=== PATIENT | female | born 1970 | race Caucasian/White ===

== ENCOUNTER 2021-09-17 13:24 | Outpatient (REF) | payer OTHER, SELFPAY ==
[2021-09-18 03:57] LABS: CT PCR NOT DETECTED (Not Detect.); NG PCR NOT DETECTED (Not Detect.)
[2021-09-22 04:46] LABS: HPV mRNA E6/E7 rflx Not Detected (Not Detected)
== END 2021-09-17 13:25 | disposition home or self-care (01) ==
LOC: HO.LAB 13:24
PROVIDERS: PCP Internal Medicine; Visit Provider Advanced Practice Midwife
DX: Z01.419 Encounter for gynecological examination (general) (routine) without abnormal findings (principal); Z11.51 Encounter for screening for human papillomavirus (HPV); Z20.2 Contact with and (suspected) exposure to infections with a predominantly sexual mode of transmission; E28.319 Asymptomatic premature menopause
CPT/HCPCS: 87491; 87591; 87624; 88142

== ENCOUNTER 2021-09-17 14:26 | Outpatient (REF) | payer OTHER, SELFPAY ==
[2021-09-17 15:25] LABS: Syphilis Screen Nonreactive (Nonreactive)
[2021-09-20 08:25] LABS: ~HepC Num1 0.09 S/CO (0.00-0.79); ~Hepatitis C Antibody Nonreactive (Nonreactive)
[2021-09-20 08:50] LABS: HBc Num1 0.05 S/CO (0.00-0.79); HIV AB/AG Nonreactive (Nonreactive); Hepatitis B Core Antibody Nonreactive (Nonreactive)
== END 2021-09-17 14:27 | disposition home or self-care (01) ==
LOC: HO.LAB 14:26
PROVIDERS: PCP Internal Medicine; Visit Provider Advanced Practice Midwife
DX: Z01.84 Encounter for antibody response examination (principal); Z11.4 Encounter for screening for human immunodeficiency virus [HIV]; Z20.2 Contact with and (suspected) exposure to infections with a predominantly sexual mode of transmission
CPT/HCPCS: 36415; 86704; 86780; 86803; 87389

== ENCOUNTER 2022-05-14 09:27 | Outpatient (REF) | payer OTHER, SELFPAY ==
[2022-05-14 09:47] LABS: MANUAL DIFF FLAG NO
[2022-05-14 10:05] LABS: Basophils Absolute Auto 0.1 X10*3/uL (0.0-0.2); Basophils Percent Auto 1.4 % (0-2); Eosinophils Absolute Auto 0.2 X10*3/uL (0.0-0.4); Eosinophils Percent Auto 3.8 % (0-4); Hematocrit 40.9 % (37.0-47.0); Hemoglobin 13.5 g/dl (12.0-16.0); Imm Gran Abs Auto 0.01 X10*3/uL (0.00-0.03); Imm Gran Pct Auto 0.2 % (0.0-0.4); Lymphocytes Absolute Auto 1.6 X10*3/uL (1.2-4.9); Lymphocytes Percent Auto 38.3 % (20-40); Mean Corpuscular Hemoglobin 29.5 pg (27.0-33.0); Mean Corpuscular Volume 89.5 fL (80.0-98.0); Mean Platelet Volume 9.9 fL (9.4-12.3); Monocytes Absolute Auto 0.4 X10*3/uL (0.1-1.2); Monocytes Percent Auto 8.9 % (2-11); Neutrophils Percent Auto 47.4 % (45-73); Platelet Count 168 X10*3/uL (160-400); Red Blood Count 4.57 X10*6/uL (4.20-5.50); Red Cell Distribution Width 12.7 % (11.0-16.0); White Blood Count 4.2 X10*3/uL (4.8-10.8)
[2022-05-14 10:45] LABS: Alanine Aminotransferase 20 U/L (0-31); Albumin Level 4.7 g/dL (3.5-5.0); Alkaline Phosphatase 82 U/L (39-117); Anion Gap 16 (12-20); Aspartate Amino Transferase 22 U/L (5-31); Bilirubin Total 0.4 mg/dL (0.0-1.0); Blood Urea Nitrogen 20 mg/dL (9-16); Calcium 9.5 mg/dL (8.4-10.2); Carbon Dioxide 25 mmol/L (22-29); Chloride 105 mmol/L (96-108); Cholesterol 119 mg/dL; Estimated Glomerular Filt Rate > 60; Glucose Random 89 mg/dL (60-115); HDL Cholesterol 40 mg/dL; LDL Cholesterol Calculated 70 mg/dl; Potassium 4.8 mmol/L (3.3-5.1); Sodium 141 mmol/L (135-145); Total Protein 7.1 g/dL (6.5-8.0); Triglycerides 47 mg/dL
[2022-05-14 10:52] LABS: Free T4 (Free Thyroxine) 1.07 ng/dL (0.71-1.85); Vitamin D 25-OH Total 69.5 ng/mL (>30)
[2022-05-14 11:50] LABS: Folate 17.3 ng/mL (> or = 4.0); Vitamin B12 886 pg/mL (200-900)
[2022-05-17 05:07] LABS: Follicle Stimulating Hormone 88.1 mIU/mL; Lutenizing Hormone 36.2 mIU/mL; Prolactin 5.2 ng/mL
[2022-05-20 16:52] LABS: Estrogen 84.6 pg/mL
== END 2022-05-14 09:28 | disposition home or self-care (01) ==
LOC: HO.LAB 09:27
PROVIDERS: PCP Internal Medicine; Visit Provider Internal Medicine
DX: K58.9 Irritable bowel syndrome, unspecified (principal); N91.2 Amenorrhea, unspecified; E78.00 Pure hypercholesterolemia, unspecified
CPT/HCPCS: 36415; 80053; 80061; 82306; 82607; 82672; 82746; 83001; 83002; 84146; 84439; 84443; 85025

== ENCOUNTER 2022-05-20 15:59 | Outpatient (REF) | payer OTHER, SELFPAY ==
--- NOTE | ~2022-05-20 | MM_ITS ---
EXAMINATION: MM SCREENING DIGITAL BREAST TOMOSYNTHESIS, BILATERAL CLINICAL INFORMATION: Screening. Asymptomatic. No prior breast imaging. No known family history breast cancer. The lifetime risk of breast cancer based on the Tyrer-Cuzick Model is 4%. COMPARISON: None (current study represents initial baseline exam). TECHNIQUE: Digital breast tomosynthesis is performed in both the craniocaudal and mediolateral oblique views along with computer-aided detection (CAD). Synthesized 2D images are generated from the tomosynthesis. FINDINGS: There are scattered areas of fibroglandular density (ACR BI-RADS breast composition Category b). There are no significant masses, abnormal calcifications, or other abnormalities. Breast tissue composition borders on heterogeneously dense in the anterior breasts. No architectural abnormality. The axilla and skin contours are unremarkable. MM/MM tomosynthesis screening BI IMPRESSION: No mammographic evidence of malignancy. ASSESSMENT: BI-RADS 1: Negative RECOMMENDATION: Routine annual mammography screening. This patient's information was entered into a reminder system with a target due date for their next mammogram.
== END 2022-05-20 16:00 | disposition home or self-care (01) ==
LOC: HO.MAMMO 15:59
PROVIDERS: Visit Provider Internal Medicine
DX: Z12.31 Encounter for screening mammogram for malignant neoplasm of breast (principal)
CPT/HCPCS: 77063; 77067

== ENCOUNTER 2023-02-17 17:08 | Outpatient (REF) | payer OTHER, SELFPAY | END 2023-02-17 17:09 | disposition home or self-care (01) | LOC: HO.LAB 17:08 | PROVIDERS: PCP Internal Medicine; Visit Provider Nurse Practitioner Family | DX: R22.1 Localized swelling, mass and lump, neck (principal); R13.10 Dysphagia, unspecified | CPT/HCPCS: 36415; 80053; 84443; 85025 ==

== ENCOUNTER 2023-03-03 16:01 | Outpatient (REF) | payer OTHER, SELFPAY ==
[2023-03-03 18:17] LABS: Anion Gap 12 (12-20); Blood Urea Nitrogen 22 mg/dL (9-16); Calcium 9.8 mg/dL (8.4-10.2); Carbon Dioxide 29 mmol/L (22-29); Chloride 104 mmol/L (96-108); Estimated Glomerular Filt Rate > 60; Glucose Random 79 mg/dL (60-115); Potassium 5.5 mmol/L (3.3-5.1); Sodium 139 mmol/L (135-145)
== END 2023-03-03 16:02 | disposition home or self-care (01) ==
LOC: HO.LAB 16:01
PROVIDERS: PCP Internal Medicine; Visit Provider Nurse Practitioner Family
DX: E87.5 Hyperkalemia (principal)
CPT/HCPCS: 36415; 80048

== ENCOUNTER 2023-03-16 14:59 | Outpatient (REF) | payer OTHER, SELFPAY ==
[2023-03-16 16:03] LABS: Anion Gap 14 (12-20); Blood Urea Nitrogen 20 mg/dL (9-16); Calcium 9.6 mg/dL (8.4-10.2); Carbon Dioxide 26 mmol/L (22-29); Chloride 103 mmol/L (96-108); Estimated Glomerular Filt Rate > 60; Glucose Random 82 mg/dL (60-115); Potassium 3.9 mmol/L (3.3-5.1); Sodium 139 mmol/L (135-145)
== END 2023-03-16 15:00 | disposition home or self-care (01) ==
LOC: HO.LAB 14:59
PROVIDERS: PCP Internal Medicine; Visit Provider Nurse Practitioner Family
DX: E87.5 Hyperkalemia (principal)
CPT/HCPCS: 36415; 80048

== ENCOUNTER 2024-04-23 15:57 | Outpatient (AMB) | payer OTHER, SELFPAY ==
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
[2024-04-23 16:02] VITALS: BP 110/70; BMI 19.2
== END 2024-04-23 16:51 | disposition home or self-care (01) ==
PROVIDERS: PCP Internal Medicine
DX: Z00.00 Encounter for general adult medical examination without abnormal findings (principal); R22.1 Localized swelling, mass and lump, neck; K58.9 Irritable bowel syndrome, unspecified; J45.909 Unspecified asthma, uncomplicated; F41.1 Generalized anxiety disorder
CPT/HCPCS: 96127; 99396

== ENCOUNTER 2024-04-27 08:05 | Outpatient (REF) | payer OTHER, SELFPAY ==
[2024-04-27 08:34] LABS: MANUAL DIFF FLAG NO
[2024-04-27 08:54] LABS: Basophils Absolute Auto 0.1 X10*3/uL (0.0-0.2); Basophils Percent Auto 1.7 % (0-2); Eosinophils Absolute Auto 0.2 X10*3/uL (0.0-0.4); Eosinophils Percent Auto 3.3 % (0-4); Hematocrit 41.1 % (37.0-47.0); Hemoglobin 13.7 g/dl (12.0-16.0); Imm Gran Abs Auto 0.01 X10*3/uL (0.00-0.03); Imm Gran Pct Auto 0.2 % (0.0-0.4); Lymphocytes Absolute Auto 1.7 X10*3/uL (1.2-4.9); Lymphocytes Percent Auto 34.7 % (20-40); Mean Corpuscular HGB Conc 33.3 g/dl (31.0-35.0); Mean Corpuscular Volume 89.9 fL (80.0-98.0); Mean Platelet Volume 9.7 fL (9.4-12.3); Monocytes Absolute Auto 0.4 X10*3/uL (0.1-1.2); Monocytes Percent Auto 7.9 % (2-11); Neutrophils Absolute Auto 2.5 x10*3/uL (2.0-8.3); Neutrophils Percent Auto 52.2 % (45-73); Platelet Count 168 X10*3/uL (160-400); Red Blood Count 4.57 X10*6/uL (4.20-5.50); Red Cell Distribution Width 12.8 % (11.0-16.0); White Blood Count 4.8 X10*3/uL (4.8-10.8)
[2024-04-27 09:13] LABS: Estimated Average Glucose 111 mg/dL; Hemoglobin A1c % 5.5 % (<6.0)
[2024-04-27 09:38] LABS: Alanine Aminotransferase 16 U/L (0-31); Albumin Level 4.4 g/dL (3.5-5.0); Alkaline Phosphatase 62 U/L (39-117); Anion Gap 11 (12-20); Aspartate Amino Transferase 20 U/L (5-31); Bilirubin Total 0.7 mg/dL (0.0-1.0); Blood Urea Nitrogen 22 mg/dL (9-16); Calcium 9.6 mg/dL (8.4-10.2); Carbon Dioxide 27 mmol/L (22-29); Chloride 108 mmol/L (96-108); Cholesterol 120 mg/dL (<200); Estimated Glomerular Filt Rate > 60; Glucose Random 92 mg/dL (60-115); HDL Cholesterol 45 mg/dL (>40); LDL Cholesterol Calculated 68 mg/dL (<100); Magnesium 2.3 mg/dL (1.6-2.6); Sodium 141 mmol/L (135-145); Total Protein 6.8 g/dL (6.5-8.0); Triglycerides 38 mg/dL (<150)
[2024-04-27 09:44] LABS: Free T4 (Free Thyroxine) 0.87 ng/dL (0.71-1.85); TSH reflex Free T4 1.01 uIU/mL (0.32-4.0)
[2024-04-27 09:55] LABS: Folate 15.8 ng/mL (> or = 4.0); Vitamin B12 1249 pg/mL (200-900)
[2024-05-03 12:13] LABS: Vitamin D 25-OH, D2 <4 ng/mL; Vitamin D 25-OH, D3 37 ng/mL; Vitamin D 25-OH, Total 37 ng/mL (30-100)
== END 2024-04-27 08:06 | disposition home or self-care (01) ==
LOC: HO.LAB 08:05
DX: Z00.00 Encounter for general adult medical examination without abnormal findings (principal); Z13.1 Encounter for screening for diabetes mellitus
CPT/HCPCS: 36415; 80053; 80061; 82306; 82607; 82746; 83036; 83735; 84439; 84443; 85025

== ENCOUNTER 2024-04-30 15:33 | Outpatient (REF) | payer OTHER, SELFPAY ==
--- NOTE | ~2024-04-30 | US_ITS ---
EXAMINATION: US THYROID CLINICAL INFORMATION: Thyroid nodule. COMPARISON: None available. TECHNIQUE: Linear transducer grayscale and color Doppler examination with attention to the region of the thyroid. FINDINGS: SIZE: Measurements of the thyroid lobes and nodules are given in sagittal, anteroposterior and transverse dimensions respectively. Right Thyroid Lobe: 4.5 x 1.2 x 1.4 cm, volume 4.2 mL. Parenchyma: The gland echotexture is homogeneous. Thyroid vascularity is normal. Left Thyroid Lobe: 4.5 x 1.1 x 1.2 cm, volume 3.1 mL. Parenchyma: The gland echotexture is homogeneous. Thyroid vascularity is normal. Isthmus: 0.2 cm in maximum AP dimension. Estimated total number of nodules greater than or equal to 1 cm: 0. Biochemical Engineer nodules are described as follows: 1. Location: Right isthmus. Size: 0.3 x 0.1 x 0.2 cm, volume 0.04 mL. Nodule characteristics: Composition: Cystic(0). ACR TI-RADS total points: 0 ACR TI-RADS category: 1 NODES: No lymphadenopathy is seen in the tissue surrounding the thyroid gland. A 6 x 5 x 7 mm cyst is seen superior to the right thyroid lobe, possibly a thyroglossal duct cyst. US/US thyroid IMPRESSION: 1. A small right thyroid isthmus nodule is seen. This requires no imaging follow-up. 2. A 7 mm low-attenuation cyst is seen superior the right thyroid lobe, possibly a thyroglossal duct cyst. ACR TI-RADS RECOMMENDATION REFERENCE: Ultrasound-guided fine-needle aspiration, followup ultrasound, no further follow up. * TR1 (0 point) and TR2 (2 points): No FNA or follow up. * TR3 (3 points): FNA if more than or equal to 2.5 cm in maximum dimension, followup ultrasound in 1, 3 and 5 years if 1.5 to 2.4 cm in maximum dimension. * TR4 (4-6 points): FNA if more than or equal to 1.5 cm in maximum dimension, followup ultrasound in 1, 2, 3 and 5 years if 1 to 1.4 cm in maximum dimension. * TR5 (more than or equal to 7 points): FNA if more than or equal to 1 cm in maximum dimension, followup ultrasound every year for 5 years if 0.5 to 0.9 cm in maximum dimension. * TR3, TR4 or TR5 nodules that are below the size threshold for followup receive no follow up. Electronically signed by: Eusebio Mancini MD 05/09/2024 06:04 PM EDT RP
== END 2024-04-30 15:34 | disposition home or self-care (01) ==
LOC: HO.US 15:33
PROVIDERS: PCP Internal Medicine
DX: E04.1 Nontoxic single thyroid nodule (principal)
CPT/HCPCS: 76536

== ENCOUNTER 2024-05-04 09:04 | Outpatient (REF) | payer OTHER, SELFPAY ==
--- NOTE | ~2024-05-04 | MM_ITS ---
EXAMINATION: MM SCREENING DIGITAL BREAST TOMOSYNTHESIS, BILATERAL CLINICAL INFORMATION: Screening. Asymptomatic. COMPARISON: Mammography: Comparison is made with available priors TECHNIQUE: Digital breast mammography with tomosynthesis is performed in both the craniocaudal and mediolateral oblique views along with computer-aided detection (CAD). FINDINGS: The breasts are heterogeneously dense, which may obscure small masses (ACR BI-RADS breast composition Category c). There are no significant masses, abnormal calcifications, or other abnormalities. MM/MM tomosynthesis screening BI IMPRESSION: No mammographic evidence of malignancy. ASSESSMENT: BI-RADS BI-RADS 1 - Negative RECOMMENDATION: Routine annual mammography screening. 1 year F/U This examination should not preclude the clinical evaluation of a suspicious palpable abnormality. This patient's information was entered into a reminder system with a target due date for their next mammogram. Electronically signed by: Alessandra Saha DO 05/16/2024 11:16 AM EDT
== END 2024-05-04 09:05 | disposition home or self-care (01) ==
LOC: HO.MAMMO 09:04
PROVIDERS: PCP Internal Medicine
DX: Z12.31 Encounter for screening mammogram for malignant neoplasm of breast (principal)
CPT/HCPCS: 77063; 77067

== ENCOUNTER → 2024-05-04 09:15 | Outpatient (BNV) | payer OTHER, SELFPAY | PROVIDERS: PCP Internal Medicine; Visit Provider Internal Medicine | DX: Z12.31 Encounter for screening mammogram for malignant neoplasm of breast (principal) | CPT/HCPCS: 77063; 77067 ==

== ENCOUNTER 2024-05-31 15:54 | Outpatient (AMB) | payer OTHER, SELFPAY ==
[2024-05-31 15:56] VITALS: BP 106/70; PULSE 71; O2SAT 98
--- NOTE | 2024-05-31 15:56 | MHC.PC.OV ---
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 Allergies influenza A (H5N1) virus vaccine mo Adverse Reaction (Intermediate, Verified 05/31/24 15:56) Vomiting Medication List - Last Reconciled 05/31/24 by Amanda Rosales PA-C albuterol sulfate 90 mcg/actuation 1 inh inhalation QID amino ac-hydroly collagen-whey 15 gram-100 kcal/30 mL ea PO citalopram 10 mg PO DAILY fluticasone propionate 50 mcg/actuation (Flonase Allergy Relief) 1 spray intranasal DAILY multivitamin 1 tab PO DAILY Tobacco use date assessed: 04/23/24 Dental Screening Dental Screen Date: 04/23/24 HPI Fatigue HPI Details 53-year-old female with past medical history of IBS and asthma last seen April 2024 coming in for acute problem. Patient states she has been doing well on the Celexa 10 mg and has noticed an improvement in her mood. She continues to have fatigue and hair thinning. [facility] Medical History COVID-19 virus infection Osteomyelitis Arrhythmia Asthma Surgical History H/O foot surgery Hx of tonsillectomy Hx of tubal ligation Family History Daughter Cervical cancer Maternal Aunt Ovarian cancer Substance abuse Mother Esophageal cancer Sister Substance abuse Father Substance abuse Brother Substance abuse Other Mental health disorder Social History Housing: House Alcohol intake: never Patient Tobacco Use Status: Never used Tobacco e-Cigarette/Vaping Use: Never Used Second Hand Smoke Exposure: No service: No Current occupational status: employed Cognitive needs: No Hearing needs: No Vision needs: Yes (glasses ) Questionnaire Thrive Questionnaire Date Thrive assessed: 04/21/24 I am a: Patient What is your living situation today?: I have a steady place to live Within the past 12 months, did the food you bought not last and you didn't have the money to get more?: Sometimes True Within the past 12 months, did you worry whether your food would run out before you got money to buy more?: Sometimes True Do you have trouble paying for medicines?: No Do you have trouble getting transportation to medical appointments?: No Do you have trouble paying your heating and electricity bill?: No Do you have trouble taking care of your child, family member or friend?: No Do you have trouble with day-to-day activities such as bathing, preparing meals, shopping, managing finances, etc.?: I choose not to answer this question Are you currently unemployed and looking for a job?: No Are you interested in more education?: No Please select the resources that you would like help with: None THRIVE Score: 2 AUDIT C Alcohol Use Questionnaire (AUDIT-C) 1. How often do you have a drink containing alcohol?: Never 3. How often do you have six or more drinks on one occasion?: Never Total Score: 0 MEIL-7 AMB Questionnaire MELI-7 Date MELI - 7 assessed: 04/23/24 Source: Developed by Drs. Roderick Rodriguez, Jada Velazco, Allen Tran and colleagues, with an educational katarina from [employer]. Review of Systems Const Denies body aches, Denies chills, Reports fatigue and Denies fever(s) Eyes Reports no additional complaints ENT Reports no additional complaints Card Denies chest pain, Denies syncope, Denies leg edema and Denies lightheadedness Resp Reports no additional complaints GI Reports no additional complaints Reports no additional complaints Musc Reports no additional complaints Skin/Breast Reports system reviewed and no additional complaints, except as documented Neuro Denies syncope Endo Reports fatigue Physical exam (Primary Care) Vital Signs: Last Vital Signs Pulse 71 05/31/24 15:56 BP 106/70 05/31/24 15:56 Pulse Ox 98 05/31/24 15:56 Oxygen Delivery Method Room Air 05/31/24 15:56 Tobacco/Smoking Status: Tobacco use Status Tobacco use date assessed 04/23/24 05/31/24 16:00 Patient Tobacco Use Status Never used Tobacco 05/31/24 16:00 e-Cigarette/Vaping Use Never Used 05/31/24 16:00 Thrive Assessment: Date of Thrive Assessment Date Thrive assessed 04/21/24 05/31/24 16:00 Const General: cooperative, healthy appearing, comfortable and no acute distress Orientation/consciousness: patient oriented x3 HENMT Head: Yes normocephalic Ears: hearing grossly normal bilaterally General nose exam: Normal external nose present Eyes General: appearance normal, both eyes and all related structures Conjunctivae: conjunctivae normal Neck Neck: Yes full ROM and Yes no lymphadenopathy Resp Effort & Inspection: normal respiratory effort Auscultation: clear to auscultation bilaterally, no crackles, no rales, no rhonchi and no wheezes Cardio Rate: regular rate Rhythm: regular rhythm Skin General skin exam: no rashes or lesions noted Neuro General: patient oriented x3 Gait exam (Neuro): Normal gait present Extrem General: Yes normal to inspection, Yes full ROM and No edema Psych Affect: normal affect Attitude: cooperative Insight: Good insight present (Psych) Judgement: Good judgement present (Psych) Coding Level of Care Code Est Pt Level 3 (14222) Diagnoses Fatigue R53.83 Generalized anxiety disorder F41.1 Assessment & Plan Assessment & Plan (1) Fatigue: Code(s): R53.83 - Other fatigue Category: Medical Plan: Blood work normal. Ordered for iron panel as well as home sleep study for further evaluation. (2) Generalized anxiety disorder: Code(s): F41.1 - Generalized anxiety disorder Category: Medical Plan: Patient feels good improvement with Celexa but would like to increase her dose to 20 mg. New prescription sent to pharmacy and we will follow up in 2 months. Plan This note was constructed using voice recognition software. While every effort has been made to ensure accuracy and application development director, still areas may have been included sometimes these areas may affect the content or meeting of the given symptoms. Total time spent caring for the patient today was 30 minutes. This includes time spent before the visit reviewing the chart, time spent during the visit, and time spent after the visit and documentation. Orders: Orders IRON PROFILE Today R53.83 - Other fatigue RT home sleep study Today R53.83 - Other fatigue Medications: New citalopram 20 mg PO DAILY 30 tabs 1RF Discontinued citalopram Discontinued Reason: Patient no longer taking 10 mg PO DAILY 30 tabs 2RF
== END 2024-05-31 16:42 | disposition home or self-care (01) ==
DX: R53.83 Other fatigue (principal); F41.1 Generalized anxiety disorder

== ENCOUNTER 2024-06-21 13:16 | Outpatient (AMB) | payer OTHER, SELFPAY ==
--- NOTE | 2024-06-21 13:18 | A.OFFVIS_ITS ---
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 She is doing well with no concerns. Attempting to eat a healthy diet with calcium and vitamin D and stays active with exercise. Currently not sexually active. Denies any vaginal dryness or irritation. STI testing offered; she declines. Last pap smear; 2021. Last mammogram; 2023. Colonoscopy is UTD. Denies any family history of colon cancer. FH ovarian and breast. 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 Cognitive needs: No Hearing needs: No Vision needs: Yes (glasses ) Female Reproductive History Menstrual Total pregnancies: 2 Full term: 2 Date of last pap smear: 09/17/21 (negative pap smear, negative hpv) Date of Mammogram: 05/04/24 (bi-rad 1) Review of Systems Const All systems reviewed & are unremarkable except as noted in HPI and below Reports as per HPI Eyes Reports no additional complaints ENT Reports no additional complaints Card Reports no additional complaints Resp Reports no additional complaints GI Reports as per HPI and Reports no additional complaints Reports as per HPI Musc Reports no additional complaints Skin/Breast Reports as per HPI Neuro Reports no additional complaints Psych Reports no additional complaints Endo Reports no additional complaints Severiano/Lymph Reports no additional complaints Aller/Immun Reports no additional complaints Physical Exam Vital Signs: Last Vital Signs BP 102/58 L 06/21/24 13:22 BMI result Body Mass Index 19.1 Const General: cooperative, healthy appearing, no acute distress, well developed and alert Orientation/consciousness: patient oriented x3 HEENT Head: Yes normal to inspection Eyes General: appearance normal, both eyes and all related structures Neck Neck: Yes normal visual inspection Thyroid: Thyroid normal Chest Chest palpation & inspection: normal inspection of the chest and other (no puckering, dimpling, peau de orange, retraction, discharge, masses) Breast/axilla inspection: normal inspection of the breasts Breast/axilla palpation: normal palpation of the breasts Resp Effort & Inspection: normal respiratory effort GI Inspection: Yes normal to inspection Palpation (GI): Soft to palpation Rectal Exam - Female: deferred General: Yes bladder normal to palpation External Female Exam: normal external appearance and normal appearance of the urethra Speculum Exam - Vagina: normal appearance of the vagina, normal palpation, normal vaginal discharge and vagina atrophic Speculum Exam - Cervix: normal appearance of the cervix and normal palpation Bimanual exam- vagina & uterus: normal bimanual exam, normal palpation, uterine size normal, bladder normal to palpation, normal palpation and non-tender Bimanual Exam- Adnexa, other: no masses Skin General skin exam: no rashes or lesions noted Rashes: no rashes Neuro General: patient oriented x3 Cognition (Neuro): normal cognition Extrem General: Yes normal to inspection Psych Attitude: cooperative Thought process: Normal thought process present Assessment & Plan Assessment & Plan (1) Encounter for well woman exam with routine gynecological exam: Code(s): Z01.419 - Encounter for gynecological examination (general) (routine) without abnormal findings Category: Medical Plan Discussed: Current recommendations for pap smears per ASCCP guidelines. Breast awareness, periodic self breast exams and yearly mammogram. Maintain a healthy lifestyle, well balanced diet including Calcium 1,200 mg and Vitamin D 600 IU daily, and routine exercise. Use of condoms for STI prevention if indicated. Contact the office with any postmenopausal bleeding. Patient verbalizes understanding and agrees to the plan of care. She was given opportunity to ask questions and all questions were answered to the best of my ability. RTO in 1 year for annual water main inspector exam. This note is constructed using voice recognition software. While every effort has been made to ensure accuracy, ocular pathologist errors may have been included. Coding Level of Care Code Est Pt Prev Care 40-64y(16540) Diagnoses Encounter for well woman exam with routine gynecological exam Z01.419
[2024-06-21 13:22] VITALS: BP 102/58; BMI 19.1
== END 2024-06-21 14:03 | disposition home or self-care (01) ==
PROVIDERS: PCP Internal Medicine; Visit Provider Advanced Practice Midwife
DX: Z01.419 Encounter for gynecological examination (general) (routine) without abnormal findings (principal)
CPT/HCPCS: 99396

== ENCOUNTER → 2024-07-24 16:00 | Outpatient (REF) | payer OTHER, SELFPAY | LOC: HO.SL 16:00 | PROVIDERS: PCP Internal Medicine | DX: R53.83 Other fatigue (principal); G47.10 Hypersomnia, unspecified | CPT/HCPCS: 95806 ==

== ENCOUNTER → 2024-07-24 16:12 | Outpatient (BNV) | payer OTHER, SELFPAY | PROVIDERS: PCP Internal Medicine; Visit Provider Internal Medicine | DX: G47.10 Hypersomnia, unspecified (principal); R06.83 Snoring | CPT/HCPCS: 95806 ==

== ENCOUNTER 2024-09-16 13:54 | Outpatient (AMB) | payer OTHER, SELFPAY ==
--- NOTE | 2024-09-16 13:55 | MHC.OFFVIS ---
Intake Visit Reasons: Mignon PT + Cologuard 30 mins Intake Note: Esmer presents as a telehealth today Mignon patient follow up for a POS cologuard. CC: she states that she does not have any concerns per say. Allergies influenza A (H5N1) virus vaccine mo Adverse Reaction (Intermediate, Verified 09/16/24 13:55) Vomiting HPI Comments Details: 54 year old female presenting to the office for discussion of colonoscopy after a positive cologuard test. Patient is at average risk of colon cancer due to no family history of colon cancer in first degree relatives. Mother with esophageal cancer. Patient does not have any other gastrointestinal symptoms to include abdominal pain, nausea, vomiting, diarrhea, weight loss. Does occ get blood work on wiping. Labs reviewed to confirm patient does not have anemia. Had a cologuard test 05/2024 which is POSITIVE. Pertinent hx includes hx of eating disorder as a young adult and since then has had abd bloating, cramping on and off. Remote hx of smoking. NO etOH. PFSH Medical History COVID-19 virus infection Osteomyelitis Arrhythmia Asthma Surgical History H/O foot surgery Hx of tonsillectomy Hx of tubal ligation Family History (Updated 09/16/24 @ 13:55 by LAN Singh) Daughter Cervical cancer Maternal Aunt Ovarian cancer Substance abuse Mother Esophageal cancer Sister Substance abuse Father Substance abuse Brother Substance abuse Maternal Aunt IBS (irritable bowel syndrome) Other Mental health disorder Social History Housing: House Alcohol intake: never Patient Tobacco Use Status: Never used Tobacco e-Cigarette/Vaping Use: Never Used Second Hand Smoke Exposure: No service: No Current occupational status: employed 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 Cognitive needs: No Hearing needs: No Vision needs: Yes (glasses ) Review of Systems Const All systems reviewed & are unremarkable except as noted in HPI and below Physical Exam phone visit Telehealth Telehealth Telehealth Platform: Telephone Location of provider rendering services: practice address Location of patient: address on file Patient Identification confirmed using: Name, : Yes Telehealth method: voice only Patient verbally consented to treatment: Yes Patient verbally consented to billing insurance company: Yes Patient informed of any privacy concerns related to visit: Yes Minutes spent on Phone/Video with Pt.: 14 Assessment & Plan Assessment & Plan (1) Positive colorectal cancer screening using Cologuard test: Code(s): R19.5 - Other fecal abnormalities Category: Medical Plan Reviewed with the pt that will need diagnostic colo after positive cologuard. This is to be done within 3-6 months of cologuard testing i.e by November. [place] prep instructions reviewed and link sent to portal as well. PEG sent to pharmacy. Follow up after colo as needed. Medications: New peg 3350-electrolytes 236-22.74-6.74 -5.86 gram (Golytely) as per split prep instructions, until fecal effluent is clear 240 mL PO Q10M 4,000 mL 0RF colonoscopy Coding Level of Care Code Tele New Pt Level 3 (98823) Diagnoses Positive colorectal cancer screening using Cologuard test R19.5
== END 2024-09-16 16:49 | disposition home or self-care (01) ==
LOC: HO.HGI 13:54
PROVIDERS: PCP Internal Medicine; Visit Provider Internal Medicine
DX: Z01.818 Encounter for other preprocedural examination (principal); Z12.11 Encounter for screening for malignant neoplasm of colon; R19.5 Other fecal abnormalities; Z80.0 Family history of malignant neoplasm of digestive organs
CPT/HCPCS: 98016

== ENCOUNTER 2024-12-03 11:03 | Day surgery (SDC) | payer OTHER, SELFPAY ==
[2024-12-03 11:50] VITALS: BP 119/61; PULSE 67; RESP 16; TEMP 36.8; O2SAT 99; BMI 19.7
--- NOTE | 2024-12-03 12:17 | MHC.SHP ---
Pre-Procedural Eval Section A - 24 Hr Update-Section A only Date of Service: 12/03/24 Section B - Complete if H&P > 30 days Chief Complaint: pos cologuard Details of Present Illness: COVID-19 virus infection Osteomyelitis Arrhythmia Asthma Surgical History H/O foot surgery Hx of tonsillectomy Hx of tubal ligation Present Medications: see Short Stay Collaborative assessment Allergies: Allergies Allergy/AdvReac Type Severity Reaction Status Date / Time influenza A (H5N1) virus AdvReac Intermediate Vomiting Verified 12/03/24 11:53 vaccine mo Review of Systems Review of Systems Comment: Ten point ROS negative Exam Exam Comment: Gen appear: No acute distress HEENT: no icterus Chest: No overt resp distress Abd: soft, nontender, nondistended Psych: Stable affect, answering questions appropriately Neuro: A/Ox3 noted to move all extremities spontaneously Ext: no peripheral edema Plan Diagnosis/Plan: Unchanged I have reviewed the history and physical and performed a pertinent physical examination on my patient. No changes have occurred unless specified. Time Spent With Patient Time: Total time managing care of this patient today ____ minutes.
--- NOTE | 2024-12-03 13:03 | P.OPN-COLO_ITS ---
Colonoscopy Operative Note Operative Note Date of Service: 12/03/24 Narrative: Procedure: Colonoscopy Indication: Positive cologuard Endoscopist: Rosamaria Kate MD Anesthesia Provider: Dr Duong Cedillo Anesthesia type: MAC Instrument: Olympus [id number]-H190L Consent: Indication, risks vs benefits, and alternatives were discussed with the patient who gave written informed consent to proceed. EKG, pulse, pulse oximetry and blood pressure were monitored throughout the procedure. Please see anesthesia flowsheet. Procedure: The patient was brought to the procedure room and placed in the left lateral decubitus position. IV medications were administered by the anesthesia provider in attendance. A digital rectal exam was performed which was abnormal due to finding of hemorrhoids. A distal attachment cap was affixed to the tip of the colonoscope which was then inserted through the anus and advanced through the colon to the cecum at 75 cm,and terminal ileum. Appendiceal orifice and ileocecal valve were identified. Mucosa was carefully examined under high definition white light as the instrument was slowly withdrawn in a retrograde panoramic fashion. Retroflexion was performed in rectum. The procedure was not difficult. There were no immediate obvious complications. The quality of the prep was BBPS: 3+2+3 = adequate Withdrawal time 15 minutes. Limitations: No limitations. Findings: Mucosa: Normal to cecum and terminal ileum. Protruding lesions: * 2 sessile polyps vs hemorrhoids just at the dentate line of size 8-10 mm arising from a hemorrhoid column but also with surface mucosal changes. Polypectomy/biopsy was deferred given location and possibility of hemorrhoidal tissue. * Large internal hemorrhoids with stigmata of recent bleeding. Excavated lesions: * Small diverticulosis of left sided colon. Impression: 1. Normal colon mucosa 2. 2 polypoid lesions at the dentate line 3. External and internal hemorrhoids 4. Diverticulosis Recommendations: - Recommend outpatient gen surg referral for dedicated anoscopy and evaluation - If determined to not have adenomas, repeat colonoscopy recommended in 10 years for asymotomatic colorectal ca screening
[2024-12-03 13:04] VITALS: BP 106/50; PULSE 58; RESP 12; TEMP 36.7; O2SAT 100
[2024-12-03 13:20] VITALS: BP 128/75; PULSE 62; RESP 15; TEMP 37.2; O2SAT 100
--- NOTE | 2024-12-04 14:37 | P.CONAN_ITS ---
HPI - Anesthesia Eval Consult details Narrative: 54 F colonoscopy PMFSH Active Problems Active Problems: All Active Problems (Updated 06/21/24 @ 13:32 by Sully Aponte CNM) Encounter for well woman exam with routine gynecological exam (Acute) Hypersomnia (Acute) Fatigue (Acute) Positive colorectal cancer screening using Cologuard test (Acute) Generalized anxiety disorder (Acute) Annual physical exam (Acute) Hyperkalemia (Acute) Decreased hearing of right ear (Acute) Difficulty swallowing (Acute) Neck fullness (Acute) Postnasal drip (Acute) Amenorrhea (Acute) Colon cancer screening (Acute) Encounter for screening mammogram for malignant neoplasm of breast (Acute) Irritable bowel syndrome (IBS) (Acute) Asthma (Acute) Past Medical History Medical History COVID-19 virus infection Osteomyelitis Arrhythmia Asthma Family History Family History (Updated 09/16/24 @ 13:55 by LAN Singh) Daughter Cervical cancer Maternal Aunt Ovarian cancer Substance abuse Mother Esophageal cancer Sister Substance abuse Father Substance abuse Brother Substance abuse Maternal Aunt IBS (irritable bowel syndrome) Other Mental health disorder Family history of problems with anesthesia: No Surgical History Surgical History H/O foot surgery Hx of tonsillectomy Hx of tubal ligation History of Problems with Anesthesia: No Social History Social History Housing: House Are you a primary attending ambulatory care to a significant other at home: No Do you presently have visiting nurse or other home services: No Alcohol intake: never Comment: pt states she has chronic abdomal pain, pain is not new Patient Tobacco Use Status: Former Tobacco user Tobacco use type: Cigarette e-Cigarette/Vaping Use: Never Used Second Hand Smoke Exposure: No service: No Current occupational status: employed 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 Cognitive needs: No Hearing needs: No Vision needs: Yes (glasses ) Meds Allergies Allergy/AdvReac Type Severity Reaction Status Date / Time influenza A (H5N1) virus AdvReac Intermediate Vomiting Verified 12/03/24 11:53 vaccine mo Home Medications ?Medication ?Instructions ?Recorded ?Confirmed ?Last Taken ?Type amino acid-hydrolyzed 1 ea PO DAILY 05/09/22 12/03/24 Unknown History collagen-whey 15 gram-100 kcal/30 mL oral liquid multivitamin 1 tab PO DAILY 04/23/24 12/03/24 Unknown History Exam Height,Weight and Vital Signs: Height 5 ft 5 in Weight 118 lb 2.684 oz Last Vital Signs Temp 98.9 F 12/03/24 13:20 Pulse 62 12/03/24 13:20 Resp 15 12/03/24 13:20 BP 128/75 12/03/24 13:20 Pulse Ox 100 12/03/24 13:20 O2 Del Method Room Air 12/03/24 13:20 Airway Mallampati Class: I TM Dist: >3cm Neck ROM: Full Assessment and Plan Assessment Anesthesia Assessment: Anesthesia Plan Discussed and Chart Reviewed Final Anesthetic Review Family History of Problems with Anesthesia: No History of Problems with Anesthesia: No NPO: Yes ASA Class: II Final Preanesthetic Review: No Changes in Pt Med Stat, Meds/Allgs Chart Reviewed, Consent Obtained/Reviewed and Anes Risks/Benef Reviewed Patient Risk: Low Procedure Risk: Low Anesthetic Plan Anesthetic Plan: MAC: Disposition: Standard PACU
== END 2024-12-03 14:01 | disposition home or self-care (01) ==
PROVIDERS: PCP Internal Medicine; Visit Provider Internal Medicine
PROC: 0DJD8ZZ Inspection of Lower Intestinal Tract, Via Natural or Artificial Opening Endoscopic (ICD-10-PCS; CPT 45378; principal; 2024-12-03 13:30)
DX: R19.5 Other fecal abnormalities (principal); K62.1 Rectal polyp; K57.30 Diverticulosis of large intestine without perforation or abscess without bleeding; K64.8 Other hemorrhoids; K64.4 Residual hemorrhoidal skin tags; J45.909 Unspecified asthma, uncomplicated; I49.9 Cardiac arrhythmia, unspecified; M86.9 Osteomyelitis, unspecified; Z79.899 Other long term (current) drug therapy; Z88.7 Allergy status to serum and vaccine; Z98.890 Other specified postprocedural states; Z87.891 Personal history of nicotine dependence
CPT/HCPCS: 45378; J2003; J2371; J2704

== ENCOUNTER → 2024-12-03 11:03 | Outpatient (BNV) | payer OTHER, SELFPAY | PROVIDERS: PCP Internal Medicine; Visit Provider Internal Medicine | DX: Z12.11 Encounter for screening for malignant neoplasm of colon (principal); R19.5 Other fecal abnormalities; K63.5 Polyp of colon; K57.30 Diverticulosis of large intestine without perforation or abscess without bleeding | CPT/HCPCS: 45378 ==

== ENCOUNTER 2025-05-10 09:39 | Outpatient (REF) | payer OTHER, SELFPAY ==
--- OUTSIDE RECORDS SUMMARY | 2020-08-30 10:21 | XMS_ITS | Continuity of Care Document ---
Author Organization [facility] Address [address] [place] [address] Phone Care Team Providers Care Weaving Supervisor Name Role Phone Unavailable Unavailable Unavailable Allergies, Adverse Reactions, Alerts Substance Reaction Status Criticality lisinopril Active No Information Sulfa (Sulfonamide Antibiotics) Active No Information Medications Medication Instructions Dosage Effective Dates (start - stop) Status Comments CITALOPRAM HBR (unknown strength) take 1 tablet by oral route every day Not Available - Active SINGULAIR (unknown strength) Not Available - Active Procedures Procedure Date Handl/convey Specmn-offic To L 20 Offic/outpt E&m [facility] 0 [facility] Offic/outpt E&m [facility] 2 17 [facility] Agt-immunassay Dir Obs; Strep 7 Offic/outpt E&m [facility] 5 [facility] Advance Directives Directive Yes / No Effective Date File Name No Information Encounters Encounter Description Practice Location Reason(s) For Visit Diagnoses Date Provider Providers Copied on Encounter [facility], [address], [place], [id number] , [place] tel:[phone] [facility] Ambassador No Information 1 No Information Offic/outpt E&m [facility], [address], [place], [id number] , tel: [phone] [facility] COVID-19 Evaluation (chief complaint) Exposure to COVID-19 virus 0 No Information Offic/outpt E&m [facility] 2 [facility], [address], [place], [place], [id number] , [place] tel: [phone] [facility] sore throat (chief complaint) Acute pharyngitis, unspecifiedAcut e bacterial pharyngitis 7 [address], [place], [place], [id number], [place]. [phone] Offic/outpt E&m [facility], [address], [place], [place], [id number] , tel: [phone] [facility] rash (chief complaint) Ringworm 5 No Information Family History Family Member Type Diagnosis Age At Onset No Information Payers Payer name Insurance type Covered green party ID Authoriza timele(s) [facility] [place] [id number] Social History Type Description Quantity Date Captured Comments Sex Female Smoking Status No Information Chief Complaint And Reason For Visit No Information Reason For Referral Reason For Referral No Information Plan Of Treatment Date Type Action Status Referral Ordered: Rapid Strep Test ordered History Of Present Illness Encounter Date Complaint History Of Prese nt Illness COVID-19 Evaluation Onset of sym ptoms was suddenly. Symptoms are mild-moderate. Episodes occur daily. The patient notes steady. Context: Known exposure to COVID-19 at work. The patient presents with fatigue, headache, myalgia, nasal congestion, runny nose and sore throat. The patient does not present with abdominal pain, anorexia, arthralgia, back pain, chills, cough, diarrhea, fever, generalized weakness, loss of smell, lymphadenopathy, nausea, shortness of breath, change in taste or vomiting. Risk factors include Hypertension but exclude Age > 65, BMI > 40, Cardiovascular disease, Chronic kidney disease, Chronic lung disease, Immunocompromised, Diabetes. Denies aggravating factors. Denies relieving factors. Functional Status Date Functional Assessmen t No Information Instructions Date Instruction Additional Infor lionel We will call you wit h the results. Continue to use masks, social distancing and good hand hygiene. If you have any symptoms, stay home and self isolate till well and get your test results. Call us with any questions or concerns.To the ER if you get in distress.Your specimen has been sent to [facility] for processing. Standard turnaround time for results is approximately 3-5 days. Please note with increased COVID-19 demand turnaround time for results may be longer. When your results are ready, [facility] will publish them in their patient portal, which you can access at [email or web address]. Click the Create Account button in the middle of the page. Related to Exposure to COVID-19 virus Assessments Type Assessment Date No Information Patient Care Teams Name Effective Dates (start - stop) Status Members No Information
--- NOTE | ~2025-05-10 | MM_ITS ---
EXAMINATION: MM SCREENING DIGITAL BREAST TOMOSYNTHESIS, BILATERAL CLINICAL INFORMATION: Screening. Asymptomatic. COMPARISON: Mammography: Comparison is made with available priors TECHNIQUE: Digital breast mammography with tomosynthesis is performed in both the craniocaudal and mediolateral oblique views along with computer-aided detection (CAD). FINDINGS: The breasts are heterogeneously dense, which may obscure small masses. There are no significant masses, abnormal calcifications, or other abnormalities. MM/MM tomosynthesis screening BI IMPRESSION: No mammographic evidence of malignancy. ASSESSMENT: BI-RADS Category 1: Negative RECOMMENDATION: Routine annual mammography screening. 1 year F/U This examination should not preclude the clinical evaluation of a suspicious palpable abnormality. This patient's information was entered into a reminder system with a target due date for their next mammogram. Electronically signed by: Alessandra Saha DO 05/13/2025 09:21 AM EDNubia
== END 2025-05-10 09:40 | disposition home or self-care (01) ==
LOC: HO.MAMMO 09:39
PROVIDERS: PCP Internal Medicine
DX: Z12.31 Encounter for screening mammogram for malignant neoplasm of breast (principal)
CPT/HCPCS: 77063; 77067

== ENCOUNTER → 2025-05-10 09:45 | Outpatient (BNV) | payer OTHER, SELFPAY | PROVIDERS: PCP Internal Medicine; Visit Provider Internal Medicine | DX: Z12.31 Encounter for screening mammogram for malignant neoplasm of breast (principal) | CPT/HCPCS: 77063; 77067 ==